=== PATIENT | male | born 1970 | race African-American/Black ===

== ENCOUNTER 2020-06-11 14:00 | Inpatient (IN) | payer OTHER ==
--- NOTE | 2020-06-11 14:39 | BHS.RME ---
Substance Use & Tx History - Substance Use History Alcohol Substance amount: 5-8 nips vodka Frequency of use: Daily Substance route: Oral Date of Last Use: 06/11/20 Physical/Psych/Mental Status - Behavior General Behavior: Increased activity (restlessness, agitation) Eye Contact: Normal - Cooperativeness Cooperativeness: Cooperative - Thinking Thought Processes: Tight, Logical, Goal Directed Thought content: Future oriented - Physical Health Problems Is patient presently having any pain?: No Does patient presently have any injuries (include location): No Does patient currently have a fever: No Is patient : No CIWA Nausea/Vomitin-No Nausea/No Vomiting Muscle Tremors: 4-Moderate,w/Arms Extend Anxiety: 5 Agitation: 4-Moderately Restless Paroxysmal Sweats: 4-Forehead w/Sweat Beads Orientation: 0-Oriented Tacttile Disturbances: 0-None Auditory Disturbances: 0-None Visual Disturbances: 0-None Headache: 3-Moderate CIWA-Ar Total Score: 20
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
[2020-06-11 15:16] VITALS: BMI 25.7
[2020-06-11] MEDS ORDERED: BISMUTH SUBSALICYLATE 524 MG/30 ML UD PO PRN (15:24)
[2020-06-11] MEDS ORDERED: MENTHOL/PHENOL 1 EACH UD MM PRN (15:24)
[2020-06-11] MEDS ORDERED: MAG HYDROX/AL HYDROX/SIMETH 30 ML UNIT-DOSE CUP PO PRN (15:24)
[2020-06-11] MEDS ORDERED: NICOTINE POLACRILEX 2 MG GUM BUC PRN (15:24)
[2020-06-11] MEDS ORDERED: MAGNESIUM HYDROX 2400MG/30ML ORAL SUSPENSION 30 ML CUP PO PRN (15:24)
[2020-06-11] MEDS ORDERED: MAGNESIUM CITRATE 300 ML BOTTLE PO PRN (15:24)
[2020-06-11] MEDS ORDERED: chlordiazePOXIDE HCL 25 MG CAPSULE PO PRN (15:24)
[2020-06-11] MEDS ORDERED: ACETAMINOPHEN 325 MG TABLET (FP) PO PRN ×2 (15:24)
[2020-06-11] MEDS ORDERED: METHOCARBAMOL 500 MG TABLET PO PRN (15:24)
[2020-06-11] MEDS ORDERED: ONDANSETRON *ODT* 4 MG TABLET SL ONE (15:45)
[2020-06-11] MEDS: hydrOXYzine PAMOATE 25 MG CAPSULE (FP) PO SCH ×2 (17:05→22:20)
[2020-06-11] MEDS: chlordiazePOXIDE HCL 25 MG CAPSULE PO SCH ×2 (17:06→22:19)
[2020-06-11] MEDS: PRENATAL VITAMINS W/ FOLIC ACID TABLET (FP) PO SCH (17:06)
[2020-06-11] MEDS: NICOTINE 7 MG/24 HOURS TOPICAL PATCH TD SCH (17:50)
[2020-06-11] MEDS ORDERED: MELATONIN 5 MG TABLETS PO SCH (22:00)
[2020-06-11] MEDS ORDERED: THIAMINE HCL 100 MG TABLET (FP) PO SCH (22:00)
[2020-06-12] MEDS: hydrOXYzine PAMOATE 25 MG CAPSULE (FP) PO SCH ×3 (05:48→13:24)
[2020-06-12] MEDS: chlordiazePOXIDE HCL 25 MG CAPSULE PO SCH ×2 (05:48→10:05)
--- NOTE | 2020-06-12 09:24 | EKG ---
Test Reason : Blood Pressure : / mmHG Vent. Rate : 069 BPM Atrial Rate : 069 BPM P-R Int : 150 ms QRS Dur : 094 ms QT Int : 412 ms P-R-T Axes : 062 -36 037 degrees QTc Int : 441 ms NORMAL SINUS RHYTHM WITH SINUS ARRHYTHMIA LEFT AXIS DEVIATION ABNORMAL ECG NO PREVIOUS ECGS AVAILABLE Confirmed by Ariel Rojas MD ([id number]) on 06/12/2020 9:23:43 AM Referred By: Confirmed By:Ariel Rojas MD
[2020-06-12] MEDS: NICOTINE 7 MG/24 HOURS TOPICAL PATCH TD SCH (10:05)
[2020-06-12] MEDS: PRENATAL VITAMINS W/ FOLIC ACID TABLET (FP) PO SCH (10:05)
[2020-06-12] MEDS: IBUPROFEN 400 MG TABLET (FP) PO PRN ×2 (10:07→18:13)
[2020-06-12 12:19] LABS: HEMATOCRIT 42.5 % (35.4-49); MCH 29.7 pg (25.7-33.7); MCHC 32.9 g/dl (32.0-35.9); MEAN CELL VOLUME 90.2 fl (80-96); MEAN PLT VOLUME 9.2 fl (7.5-11.1); PLATELET COUNT 237 K/MM3 (134-434); RBC 4.71 M/mm3 (4.00-5.60); RDW 13.3 % (11.9-15.9); WHITE BLOOD COUNT 4.1 K/mm3 (4.0-10.0)
[2020-06-12 12:27] LABS: ALBUMIN 3.7 g/dl (3.4-5.0); BILIRUBIN,TOTAL 0.9 mg/dL (0.2-1); BLOOD UREA NITROGEN 10.2 mg/dL (7-18); CALCIUM 9.3 mg/dL (8.5-10.1); CREATININE 0.8 mg/dL (0.55-1.3); POTASSIUM 3.5 mmol/L (3.5-5.1)
--- NOTE | 2020-06-12 14:31 | PN ---
S CIWA - CIWA Score Nausea/Vomitin-Mild Nausea/No Vomiting Muscle Tremors: 4-Moderate,w/Arms Extend Anxiety: 3 Agitation: 2 Paroxysmal Sweats: 1-Minimal Palms Moist Orientation: 0-Oriented Tacttile Disturbances: 1-Very Mild Itch/Numbness Auditory Disturbances: 0-None Visual Disturbances: 2-Mild Sensitivity Headache: 1-Very Mild CIWA-Ar Total Score: 15 BHS Progress Note (SOAP) Subjective: 50 years old male was admitted on 06/11/20 for alcohol withdrawal sx management treating with librium detox regiment mr cheng states that he feels much better today and prefers returning to work tomorrow emotional assurance given that mr cheng will be evaluated tomorrow Objective: 06/12/20 14:30 Vital Signs - 24 hr 06/11/20 06/11/20 06/11/20 15:14 15:24 16:50 Temperature 98.3 F 97.1 F L Pulse Rate 64 64 77 Respiratory 19 19 18 Rate Blood Pressure 162/100 162/100 147/84 O2 Sat by Pulse 97 Oximetry (%) 06/11/20 06/12/20 06/12/20 21:00 05:38 08:56 Temperature 97.1 F L 97.1 F L 97.1 F L Pulse Rate 74 56 L 58 L Respiratory 18 16 20 Rate Blood Pressure 167/96 149/82 137/86 O2 Sat by Pulse 96 95 Oximetry (%) 06/12/20 12:58 Temperature 97.1 F L Pulse Rate 55 L Respiratory 20 Rate Blood Pressure 145/86 O2 Sat by Pulse 100 Oximetry (%) 06/12/20 14:34 bp elevation Laboratory Tests 06/11/20 06/12/20 06/12/20 15:30 08:30 08:30 WBC 4.1 RBC 4.71 Hgb 14.0 Hct 42.5 MCV 90.2 MCH 29.7 MCHC 32.9 RDW 13.3 Plt Count 237 MPV 9.2 Sodium 139 Potassium 3.5 Chloride 100 Carbon Dioxide 32 Anion Gap 7 L BUN 10.2 Creatinine 0.8 Est GFR (CKD-EPI)AfAm 121.57 Est GFR (CKD-EPI)NonAf 104.89 Random Glucose 109 H Calcium 9.3 Total Bilirubin 0.9 AST 97 H ALT 86 H Alkaline Phosphatase 103 Total Protein 7.0 Albumin 3.7 COVID-19 (KOBI) Not detected ast elevation discontinue librium begin ativan 06/12/20 14:43 discontinue tylenal Assessment: 06/12/20 14:44 alcohol withdrawal Plan: ativan regiment
[2020-06-12] MEDS ORDERED: LORazepam 1 MG TABLET PO PRN (14:39)
[2020-06-12] MEDS ORDERED: amLODIPine BESYLATE 10 MG TABLET (FP) PO SCH (14:45)
[2020-06-12] MEDS ORDERED: LORazepam 2 MG TABLET PO SCH (17:00)
--- NOTE | 2020-06-12 17:49 | DS ---
[facility] Detox Discharge Summary Admission Date: 06/11/20 Discharge Date: 06/12/20 - History Additional Comments: Patient is leaving against medical advice for job related issues. He reports that he contacted his job today and may be terminated if he does not return to work tomorrow. Patient reports that he feels a lot better and will continue with an outpatient program as indicated by his counsellor. Risks and consequences of early discharge reinforced and patient verbalized understanding of instructions. He is alert and oriented x 3, ambulates independently, is not in acute distress at this time and vital signs within his norm. He reports that his only prescribed medication is Amlodipine for hypertension and he has his medication he recently filled from his pharmacy in his bag. Patient signed the AMA form and left. Pertinent Past History: Alcohol dependence Allergic Rhinitis Asthma PTSD - Physical Exam Results Vital Signs: Vital Signs Temperature 97.1 F L 06/12/20 12:58 Pulse Rate 55 L 06/12/20 12:58 Respiratory Rate 20 06/12/20 12:58 Blood Pressure 145/86 06/12/20 12:58 O2 Sat by Pulse Oximetry (%) 100 06/12/20 12:58 Laboratory Last Values WBC 4.1 K/mm3 (4.0-10.0) 06/12/20 08:30 RBC 4.71 M/mm3 (4.00-5.60) 06/12/20 08:30 Hgb 14.0 GM/dL (11.7-16.9) 06/12/20 08:30 Hct 42.5 % (35.4-49) 06/12/20 08:30 MCV 90.2 fl (80-96) 06/12/20 08:30 MCH 29.7 pg (25.7-33.7) 06/12/20 08:30 MCHC 32.9 g/dl (32.0-35.9) 06/12/20 08:30 RDW 13.3 % (11.9-15.9) 06/12/20 08:30 Plt Count 237 K/MM3 (134-434) 06/12/20 08:30 MPV 9.2 fl (7.5-11.1) 06/12/20 08:30 Sodium 139 mmol/L (136-145) 06/12/20 08:30 Potassium 3.5 mmol/L (3.5-5.1) 06/12/20 08:30 Chloride 100 mmol/L (98-107) 06/12/20 08:30 Carbon Dioxide 32 mmol/L (21-32) 06/12/20 08:30 Anion Gap 7 MMOL/L (8-16) L 06/12/20 08:30 BUN 10.2 mg/dL (7-18) 06/12/20 08:30 Creatinine 0.8 mg/dL (0.55-1.3) 06/12/20 08:30 Est GFR (CKD-EPI)AfAm 121.57 06/12/20 08:30 Est GFR (CKD-EPI)NonAf 104.89 06/12/20 08:30 Random Glucose 109 mg/dL (74-106) H 06/12/20 08:30 Calcium 9.3 mg/dL (8.5-10.1) 06/12/20 08:30 Total Bilirubin 0.9 mg/dL (0.2-1) 06/12/20 08:30 AST 97 U/L (15-37) H 06/12/20 08:30 ALT 86 U/L (13-61) H 06/12/20 08:30 Alkaline Phosphatase 103 U/L (45-117) 06/12/20 08:30 Total Protein 7.0 g/dl (6.4-8.2) 06/12/20 08:30 Albumin 3.7 g/dl (3.4-5.0) 06/12/20 08:30 Syphilis Serology Non-reactive (NONREACTIVE) 06/12/20 08:30 COVID-19 ([facility]) Not detected (Not Detected) 06/11/20 15:30 Labs reviewed Pertinent Admission Physical Exam Findings: Alcohol withdrawal symptoms - Medication Discharge Medications: Ambulatory Orders NK [No Known Home Medication] 06/11/20 - Diagnosis (1) Alcohol dependence with withdrawal Current Visit: Yes Status: Chronic (2) Allergic rhinitis Current Visit: Yes Status: Chronic (3) Asthma Current Visit: Yes Status: Chronic (4) PTSD (post-traumatic stress disorder) Current Visit: Yes Status: Chronic - AMA Did Patient Leave Against Medical Advice: Yes
[2020-06-12 17:50] VITALS: BP 148/89; PULSE 92; TEMP 96.6
[2020-06-13] MEDS ORDERED: LORazepam 1 MG TABLET PO SCH (05:00)
[2020-06-13] MEDS ORDERED: chlordiazePOXIDE HCL 25 MG CAPSULE PO SCH (05:00)
[2020-06-14] MEDS ORDERED: chlordiazePOXIDE HCL 10 MG CAPSULE PO PRN
[2020-06-14] MEDS ORDERED: LORazepam 0.5 MG TABLET PO PRN
[2020-06-14] MEDS ORDERED: chlordiazePOXIDE HCL 10 MG CAPSULE PO SCH (05:00)
[2020-06-14] MEDS ORDERED: LORazepam 0.5 MG TABLET PO SCH (05:00)
[2020-06-15] MEDS ORDERED: LORazepam 0.5 MG TABLET PO ONE (05:00)
[2020-06-15] MEDS ORDERED: chlordiazePOXIDE HCL 10 MG CAPSULE PO SCH (05:00)
[2020-06-16] MEDS ORDERED: chlordiazePOXIDE HCL 10 MG CAPSULE PO ONE (05:00)
== END 2020-06-12 06:35 | disposition left against medical advice (07) | DRG 770 ==
LOC: YASAS 14:00 → Y3N 15:28
PROVIDERS: ADMIT Allergy & Immunology; ATTEND Allergy & Immunology
PROC: HZ2ZZZZ Detoxification Services for Substance Abuse Treatment (ICD-10-PCS; principal; 2020-06-11)
DX: F10.230 Alcohol dependence with withdrawal, uncomplicated (principal); F43.10 Post-traumatic stress disorder, unspecified; J45.909 Unspecified asthma, uncomplicated
CPT/HCPCS: 36415; 80053; 85027; 86780; 93005; 93010; Q0162; U0003